=== PATIENT | male | born 1990 | race Caucasian/White ===

== ENCOUNTER 2017-05-27 04:54 | Emergency (ER) | payer OTHER ==
[2017-05-27] MEDS ORDERED: HYDROmorphone HCL 1 MG/ML DISP.SYRIN IV ONE (05:11)
[2017-05-27] MEDS ORDERED: ONDANSETRON HCL/PF 2 MG/ML VIAL IV ONE (05:11)
--- NOTE | 2017-05-27 05:18 | ERNOTE ---
<Muna Garcia - Last Filed: 05/27/17 07:41> Medical Problem HPI - Narrative Date of Service: 05/27/17 - General Time Seen by Provider: 05/27/17 05:06 Source: patient Exam Limitations: no limitations - Immun/Allergies/Home Medications Allergies/Adverse Reactions: Allergies No Known Drug Allergies Allergy (Verified 05/27/17 05:34) Home Medications: HOME MEDICATIONS NK [No Home Medication] 05/27/17 [Last Taken Unknown] - History of Present History Narrative: Recent was awakened from a deep sleep at 0 400 with severe belly pains. He denies any trauma, he states he has had pain like this before however it spontaneously resolved, his pain is severe and he asks for pain medication. He denies any nausea or vomiting he states he has regular bowel movements. Review of Systems - Review of Systems Constitutional: Present: no symptoms reported EYE: Present: no symptoms reported ENT: Present: no symptoms reported Respiratory: Present: no symptoms reported Cardiology: Present: no symptoms reported Gastrointestinal/Abdominal: Present: See HPI Genitourinary: Present: See HPI Musculoskeletal: Present: no symptoms reported Skin: Present: no symptoms reported - Family History Mother Family History - Medical: No pertinent hx Father Family History - Cancer: Melanoma Physical Exam - Physical Exam General Appearance: Present: wd/wn, alert, mild distress - secondary to pain Head Exam: Present: normal inspection, no evidence of injury Eye Exam: Normal inspection: bilateral, PERRL: bilateral, EOMI: bilateral Ears, Nose, Throat: Present: normal ENT inspection Neck: Present: normal inspection, nontender, supple Respiratory: Present: no respiratory distress, normal breath sounds, no accessory muscle use, chest nontender, lungs clear Cardiovascular/Chest: Present: regular rate, rhythm, no murmur, normal peripheral pulses Gastrointestinal/Abdominal: Present: normal bowel sounds, other - pt is tender in the left flank region Back Exam: Present: CVA tenderness (L) Extremity Exam: Present: normal inspection, normal range of motion Neurological Exam: Present: alert, oriented, normal mood/affect, no motor/ sensory deficits Skin Exam: Present: normal color, warm/dry ED Progress - Results and Orders Patient's Lab Results:: I have reviewed the patient's lab results. - Vital Signs Patient's Vital Signs:: I have reviewed the patient's vital signs. - CT/Ultrasound CT/Ultrasound Narrative: CT of abd for stone protocol was read by radiologist as - Transfer of Care Physician Sign Out: Muna Garcia Receiving Physician: Juliana Alexander Pending Results: CT/MRI results Expected Disposition: Discharge Departure Clinical Impression: Cholelithiasis Qualifiers: Cholelithiasis location: gallbladder Cholecystitis presence: without cholecystitis Biliary obstruction: without biliary obstruction Qualified Code(s) : K80.20 - Calculus of gallbladder without cholecystitis without obstruction - Departure Disposition: Home self-care Condition: Stable Instructions: Cholelithiasis, [id number], Form - Excuse from Work, School, or Physical Activity Additional Instructions: if your symptoms persist call the surgical office for follow up Referrals: Neha Parry MD [Staff Physician] - <Juliana Alexander - Last Filed: 05/27/17 12:07> Medical Problem HPI - General Source: patient, old records - Immun/Allergies/Home Medications Immunizations: IMMUNIZATION HX Immunizations Up to Date Yes - History of Present History Narrative: patient states that he has had intermittent abdominal pain for a while usually epigastric,mainly at night an usually resolved with eating. He woke up early this morning with severe upper abdominal pain all the way across. - Patient's Past Medical History Patient History - Medical: Depression, GERD, Kidney stone Patient History - Cardiac/Respiratory: No pertinent hx Patient History - Cancer: No Hx of Cancer Patient History - Surgical Procedures: No surgical history - Social History Abuse History: Hx of Substance Use - precription drugs Psych History: Hx of Depression Drug Use: none Physical Exam - Physical Exam General Appearance: Present: wd/wn, sleeping/easy to arouse Respiratory: Present: no respiratory distress, normal breath sounds, no accessory muscle use, lungs clear Cardiovascular/Chest: Present: regular rate, rhythm, no murmur Gastrointestinal/Abdominal: Present: normal bowel sounds, nondistended, soft, tenderness - across upper abdomen, more left than right. Absent: guarding Back Exam: Present: no CVA tenderness Extremity Exam: Present: no edema Neurological Exam: Present: alert, oriented, normal mood/affect Skin Exam: Present: normal color, warm/dry ED Progress - Results and Orders Patient's Lab Results:: I have reviewed the patient's lab results. - Vital Signs Patient's Vital Signs:: I have reviewed the patient's vital signs. Vital Signs: Vital Signs 05/27/17 05/27/17 05/27/17 05:04 07:41 08:08 Temperature 36.5 C Pulse Rate 80 84 96 Respiratory 40 H 15 12 Rate Blood Pressure 133/79 126/76 111/54 O2 Sat by Pulse 100 98 96 Oximetry - CT/Ultrasound CT/Ultrasound Narrative: CT concerning for cholecystitis gallbladder U/S consistent with acute cholecystitis - Progress/Reassessment Progress Note-Subjective: 05/27/17 08:10 patient sleeping after dilaudid, 05/27/17 08:[address] Parry in the OR 05/27/17 08:45 patient was seen by Dr Parry, diagnosis of cholecystitis questionable, get HIDA scan, 05/27/17 09:11 explained plan to patient, pain resolved, awaiting HIDA scan 05/27/17 11:[address] Parry, gallbladder filling, patient doesn't have cholecystitis , can be discharged radiology report shows gallbladder filling after morphine injection (see report) 05/27/17 11:30 discussed plan with patient, currently no pain
[2017-05-27] MEDS ORDERED: NORMAL SALINE 1,000 ML IV ONE (05:22)
[2017-05-27 05:25] LABS: Hematocrit 44.7 % (42.0-52.0); Hemoglobin 15.3 gm/dL (13.5-18.0); Mean Cell Volume 87.8 fl (78-100); Mean Corpuscular Hemoglobin 30.1 pg (27-31); Mean Corpuscular Hgb Conc 34.2 g/dl (32-36); Mean Platelet Volume 10.5 fl (6.0-9.5); Neutrophil # 3.1 K/mm3 (1.3-6.0); Neutrophil % 45.9 % (42-75.0); Platelet Count 226 K/mm3 (150-450); Red Blood Count 5.09 M/mm3 (4.7-6.0); Red Cell Distribution Width 11.9 % (11.5-14.0); White Blood Count 6.7 K/mm3 (4.0-10.5)
[2017-05-27] MEDS ORDERED: ONDANSETRON HCL/PF 2 MG/ML VIAL ONE (05:28)
[2017-05-27] MEDS ORDERED: HYDROmorphone HCL 1 MG/ML DISP.SYRIN ONE (05:28)
[2017-05-27] MEDS ORDERED: KETOROLAC TROMETHAMINE 30 MG/ML VIAL IV ONE (05:29)
[2017-05-27] MEDS ORDERED: KETOROLAC TROMETHAMINE 30 MG/ML VIAL ONE (05:30)
[2017-05-27 05:40] LABS: Albumin * 3.7 gm/dl (3.4-5.0); Anion Gap 12.4 mmol/L (6.8-13.8); BUN/Creatinine Ratio 10.1 (9.0-21.6); Bilirubin, Total 1.1 mg/dL (0.0-1.1); Ca. Corrected For Albumin 8.7 mg/dL (8.4-10.2); Calcium * 8.8 mg/dL (7.9-10.9); Carbon Dioxide 26.3 mmol/L (24-32.6); Potassium 3.7 mmol/L (3.4-4.6); Total Protein 7.6 gm/dL (6.2-8.2)
[2017-05-27] MEDS ORDERED: MORPHINE SULFATE 4 MG/ML SYRG IV ONE (10:23)
[2017-05-27] MEDS ORDERED: MORPHINE SULFATE 10 MG/ML SYRG ONE (10:33)
[2017-05-27 11:25] VITALS: BP 139/78
[2017-05-27 11:33] LABS: Urine Bilirubin Negative (NEGATIVE); Urine Ketone Negative (NEGATIVE); Urine Nitrite Negative (NEGATIVE); Urine Protein Negative (NEGATIVE); Urine Specific Gravity 1.015 SP.GR. (1.005-1.030); Urine Urobilinogen Normal (NORMAL)
[2017-05-27 11:44] LABS: Urine Appearance Clear; Urine Bacteria None Seen; Urine Blood 5 /ul (NEGATIVE); Urine Color Yellow; Urine RBC None Seen /hpf (0-5); Urine WBC None Seen /hpf (0-5)
== END 2017-05-27 11:41 | disposition home or self-care (01) ==
LOC: ER 04:54
DX: K80.20 Calculus of gallbladder without cholecystitis without obstruction (principal); Z87.442 Personal history of urinary calculi
CPT/HCPCS: 36415; 74176; 76705; 78226; 80053; 81001; 85025; 87086; 96374; 96375; 99284; A9537; J2405

== ENCOUNTER 2017-05-28 09:24 | Emergency (ER) | payer OTHER ==
[2017-05-28 09:30] VITALS: BP 129/82
[2017-05-28] MEDS ORDERED: ONDANSETRON 4 MG TAB.RAPDIS PO ONE (09:45)
--- NOTE | 2017-05-28 09:45 | ERNOTE ---
Abdominal HPI - General Chief Complaint: Abdominal Pain Time Seen by Provider: 05/28/17 09:39 Source: patient Exam Limitations: no limitations - Immun/Allergies/Home Medications Immunizatons: IMMUNIZATION HX Immunizations Up to Date Yes History of Influenza Vaccine No Hx Pneumococcal Vaccination No Allergies/Adverse Reactions: Allergies No Known Drug Allergies Allergy (Verified 05/28/17 09:30) Home Medications: HOME MEDICATIONS Dicyclomine HCl [Bentyl] 10 mg PO TID 14 Days #60 capsule 05/28/17 [Last Taken Unknown] Omeprazole [Prilosec] 20 mg PO DAILY #30 cap 05/28/17 [Last Taken Unknown] Ondansetron [Zofran Odt] 4 mg PO Q6H PRN #20 tab 05/28/17 [Last Taken Unknown] - History of Present Illness Narrative: Patient presents with continuing abdominal pain. He was seen here yesterday for what is presumed to be possible cholecystitis, however he had both a gallbladder ultrasound and a HIDA scan and while there were indeed gallstones the pain did not localize in the right upper quadrant is to be indicated if the pain was exclusively from the gallbladder. He also had a CAT scan of the abdomen and pelvis and no acute abnormalities were found at that time. He was examined here in the emergency department by the on-call surgeon who did not feel that this is a surgical abdomen. He states that while the pain is improved he still having some nausea. Timing: intermittent Quality: moderate Activities at Onset: none Associated Symptoms: Present: nausea, vomiting Prior Abdominal Problems: Present: none Prior Treatment: Present: recently seen, treated by physician Review of Systems - Review of Systems Constitutional: Present: See HPI EYE: Present: no symptoms reported ENT: Present: no symptoms reported Respiratory: Present: no symptoms reported Cardiology: Present: no symptoms reported Gastrointestinal/Abdominal: Present: nausea, vomiting, abdominal pain Genitourinary: Present: no symptoms reported Musculoskeletal: Present: no symptoms reported Skin: Present: no symptoms reported Neurological: Present: no symptoms reported Endocrine: Present: no symptoms reported Hematologic/Lymphatic: Present: no symptoms reported Psych: Present: no symptoms reported - Patient's Past Medical History Patient History - Medical: Depression, GERD, Kidney stone Patient History - Cardiac/Respiratory: No pertinent hx Patient History - Cancer: No Hx of Cancer Patient History - Surgical Procedures: No surgical history Patient History - Other: None - Family History Mother Family History - Medical: No pertinent hx Father Family History - Cancer: Melanoma - Social History Living Situations: home Abuse History: Hx of Substance Use Psych History: Hx of Depression Smoking Status: Never smoker Have you smoked in the past 12 months: No Alcohol Use: rarely Drug Use: marijuana - Immunizations Immunizations Up to Date: Yes Hx Pneumococcal Vaccination: No History of Influenza Vaccine: No Physical Exam - Physical Exam General Appearance: Present: wd/wn, alert, moderate distress Eye Exam: Normal inspection: bilateral, PERRL: bilateral Ears, Nose, Throat: Present: normal ENT inspection, H, normal pharynx Neck: Present: normal inspection, nontender Respiratory: Present: no respiratory distress, normal breath sounds, no accessory muscle use, chest nontender, lungs clear Cardiovascular/Chest: Present: regular rate, rhythm, no murmur, normal peripheral pulses Gastrointestinal/Abdominal: Present: normal bowel sounds, nondistended, soft, no organomegaly, tenderness - tenderness is generalized, no definitive Casey sign Rectal Exam: Present: deferred Back Exam: Present: normal inspection, normal range of motion Extremity Exam: Present: normal inspection, non-tender, no edema, normal range of motion Neurological Exam: Present: alert, oriented, normal mood/affect Skin Exam: Present: normal color, warm/dry Lymphatic Exam: Present: no adenopathy ED Progress - Vital Signs Patient's Vital Signs:: I have reviewed the patient's vital signs. Vital Signs: Vital Signs 05/28/17 09:26 Temperature 36.1 C L Pulse Rate 83 Respiratory 16 Rate Blood Pressure 129/82 O2 Sat by Pulse 98 Oximetry - Progress/Reassessment Chief Complaint: Abdominal Pain Plan - Plan Plan: I discussed Kalpesh's tests that were done yesterday as well as examination with the on-call surgeon at exam him yesterday, and he does not feel this is gallbladder and it is not a surgical abdomen. He suggests that we treat the nausea and vomiting, possible IBS and some treatment for gastritis/ gastroenteritis. He will see Kalpesh at his regularly scheduled appointment. Departure Clinical Impression: Gastroenteritis - Departure Disposition: Home self-care Condition: Good Instructions: Viral Gastroenteritis, Adult, [id number] Prescriptions: Dicyclomine HCl [Bentyl] 10 mg PO TID 14 Days #60 capsule Omeprazole [Prilosec] 20 mg PO DAILY #30 cap Ondansetron [Zofran Odt] 4 mg PO Q6H PRN #20 tab PRN Reason: Nausea And Vomiting
[2017-05-28] MEDS ORDERED: ONDANSETRON 4 MG TAB.RAPDIS ONE (09:55)
== END 2017-05-28 10:07 | disposition home or self-care (01) ==
LOC: ER 09:24
DX: K52.9 Noninfective gastroenteritis and colitis, unspecified (principal)

== ENCOUNTER 2017-06-08 00:01 | Emergency (ER) | payer OTHER ==
--- NOTE | 2017-06-08 00:31 | ERNOTE ---
Abdominal HPI - General Chief Complaint: Abdominal Pain Time Seen by Provider: 06/08/17 00:30 Source: patient, EMR, RN notes reviewed, past records - Immun/Allergies/Home Medications Immunizatons: IMMUNIZATION HX Immunizations Up to Date Yes History of Influenza Vaccine No Hx Pneumococcal Vaccination No Allergies/Adverse Reactions: Allergies No Known Drug Allergies Allergy (Verified 05/28/17 09:30) Home Medications: HOME MEDICATIONS Dicyclomine HCl [Bentyl] 10 mg PO TID 14 Days #60 capsule 05/28/17 [Last Taken Unknown] Omeprazole [Prilosec] 20 mg PO DAILY #30 cap 05/28/17 [Last Taken Unknown] Ondansetron [Zofran Odt] 4 mg PO Q6H PRN #20 tab 05/28/17 [Last Taken Unknown] - History of Present Illness Narrative: Patient has been here twice recently with complaints of abdominal pain. He was worked up for a cholecystitis, including a HIDA scan, which was not conclusive for a cholecystitis. Tonight he ate a [employer] sandwich with english fries. His pain started 4 or so hours after he ate that. He is very anxious, and in quite a bit of pain. He is supposed to do something with someone as follow up, but he is unsure who or why. Date (Duration): 06/07/17 Time (Timing): 23:00 Timing: constant, getting worse Quality: severe Activities at Onset: none Modifying Factors - (Improves): Present: other - nothing Modifying Factors - (Worsens): Present: eating Associated Symptoms: Present: nausea, loss of appetite, shortness of breath Prior Abdominal Problems: Present: similar symptoms Prior Treatment: Present: recently seen, treated by physician - Patient's Past Medical History Patient History - Medical: Depression, GERD, Kidney stone Patient History - Cardiac/Respiratory: No pertinent hx Patient History - Cancer: No Hx of Cancer Patient History - Surgical Procedures: No surgical history Patient History - Other: None - Family History Mother Family History - Medical: No pertinent hx Family History - Cardiac/Respiratory: No pertinent hx Family History - Cancer: No pertinent family hx Father Family History - Medical: No pertinent hx Family History - Cardiac/Respiratory: No pertinent hx Family History - Cancer: Melanoma - Social History Living Situations: significant other Abuse History: Hx of Substance Use Psych History: Hx of Depression Smoking Status: Current every day smoker Have you smoked in the past 12 months: Yes - Vapor cigarettes Do you dip or chew tobacco: No Patient requests Smoking Cessation Consult: No Initiate information on Smoking Cessation: No Alcohol Use: none Drug Use: none - Immunizations Immunizations Up to Date: Yes Hx Pneumococcal Vaccination: No History of Influenza Vaccine: No Physical Exam - Physical Exam General Appearance: Present: severe distress, anxious Head Exam: Present: normal inspection, no evidence of injury Eye Exam: Normal inspection: bilateral, PERRL: bilateral, EOMI: bilateral Ears, Nose, Throat: Present: normal ENT inspection, normal pharynx Neck: Present: normal inspection, nontender Respiratory: Present: no respiratory distress, normal breath sounds, no accessory muscle use, chest nontender, lungs clear Cardiovascular/Chest: Present: regular rate, rhythm, no murmur Gastrointestinal/Abdominal: Present: normal bowel sounds, nondistended, soft, tenderness Back Exam: Present: normal inspection, normal range of motion Extremity Exam: Present: normal inspection, non-tender, normal range of motion, no edema Neurological Exam: Present: alert, oriented, normal mood/affect Skin Exam: Present: normal color, warm/dry ED Progress - Results and Orders Patient's Lab Results:: I have reviewed the patient's lab results. Results and Orders: Laboratory Tests 06/08/17 06/08/17 06/08/17 00:42 00:42 01:18 WBC 8.3 RBC 5.45 Hgb 16.1 Hct 47.4 MCV 87.0 MCH 29.5 MCHC 34.0 RDW 12.1 Plt Count 274 MPV 10.2 H Immature Gran % (Auto) 0.20 Immature Gran # (Auto) 0.02 Neutrophils % 48.5 Lymphocytes % 34.7 Monocytes % 12.1 H Eosinophils % 3.5 H Basophils % 1.0 Nucleated RBC % 0.0 Neutrophils # 4.0 Lymphocytes # 2.9 Monocytes # 1.0 Eosinophils # 0.3 Absolute Basophils 0.1 Sodium 144 H Plasma Sodium 144 H Potassium 3.9 Chloride 105 Carbon Dioxide 27.2 Anion Gap 15.7 H BUN 13 Creatinine 1.23 Est GFR (Non-Af Amer) 74 BUN/Creatinine Ratio 10.6 Random Glucose 103 Calcium 9.2 Calcium Adj for Albumin 8.8 Total Bilirubin 1.9 H AST 24 ALT 44 Alkaline Phosphatase 66 Total Protein 8.2 Albumin 4.1 Amylase Lipase Urine Color Dark yellow Urine Appearance Clear Urine pH 6.0 Ur Specific Jackson >=1.030 Urine Protein Negative Urine Glucose (UA) Negative Urine Ketones Negative Urine Blood 50 H Urine Nitrate Negative Urine Bilirubin Negative Urine Urobilinogen Normal Ur Leukocyte Esterase Negative Urine RBC None seen Urine WBC None seen Ur Epithelial Cells Trace Urine Bacteria None seen Urine Culture Comments No culture indicated Urine Opiates Screen Barbiturate Screen Ur Phencyclidine Scrn Urine Amphetamine U Benzodiazepines Scrn Urine Cocaine Screen Urine Marijuana (THC) 06/08/17 06/08/17 01:18 01:49 WBC RBC Hgb Hct MCV MCH MCHC RDW Plt Count MPV Immature Gran % (Auto) Immature Gran # (Auto) Neutrophils % Lymphocytes % Monocytes % Eosinophils % Basophils % Nucleated RBC % Neutrophils # Lymphocytes # Monocytes # Eosinophils # Absolute Basophils Sodium Plasma Sodium Potassium Chloride Carbon Dioxide Anion Gap BUN Creatinine Est GFR (Non-Af Amer) BUN/Creatinine Ratio Random Glucose Calcium Calcium Adj for Albumin Total Bilirubin AST ALT Alkaline Phosphatase Total Protein Albumin Amylase 31 Lipase 144 Urine Color Urine Appearance Urine pH Ur Specific Jackson Urine Protein Urine Glucose (UA) Urine Ketones Urine Blood Urine Nitrate Urine Bilirubin Urine Urobilinogen Ur Leukocyte Esterase Urine RBC Urine WBC Ur Epithelial Cells Urine Bacteria Urine Culture Comments Urine Opiates Screen Positive H Barbiturate Screen Negative Ur Phencyclidine Scrn Negative Urine Amphetamine Negative U Benzodiazepines Scrn Negative Urine Cocaine Screen Negative Urine Marijuana (THC) Negative - Vital Signs Patient's Vital Signs:: I have reviewed the patient's vital signs. Vital Signs: Vital Signs 06/08/17 00:07 Temperature 36.3 C L Pulse Rate 66 Respiratory 20 Rate Blood Pressure 143/80 O2 Sat by Pulse 99 Oximetry - Progress/Reassessment Chief Complaint: Abdominal Pain Progress:: Improved Progress Note-Subjective: 06/08/17 02:39 Patient is convinced he has pancreatitis, but his amylase and lipase are completely normal. We reviewed his diet, which is more moderate in fat when he eats at home. He has follow up arranged, but is unsure of who it is with. Dr. Parry was consulted when the patient had his HIDA scan. I will give the patient both the number for Dr. Parry and Dr. Dawson so that he will be sure to be able to get follow up. Diet was discussed at length, going over the fat content of the foods he normally eats. Plan - Plan Plan: Sending patient home with a low fat diet, and instructions to get in contact again with the surgeon. Departure Clinical Impression: Recurrent biliary colic - Departure Disposition: Home self-care Condition: Stable Instructions: Biliary Colic, Low-Fat Diet for Pancreatitis or Gallbladder Conditions Additional Instructions: Please follow a low fat diet as much as you can. Referrals: Neha Parry MD [Staff Physician] - (Please call Dr. Parry first, as he appears to be the physician that was consulted and probably the office you spoke with. He is not alarm installation technician this week, but he has already been consulted on you before. If you have to use the surgeon alarm installation technician this week, then please call Dr. Dawson.) Maximiliano Dawson MD [Associate] - (Call this physician if he is who you need to see.)
[2017-06-08] MEDS ORDERED: LORazepam 2 MG/ML DISP.SYRIN IV ONE (00:41)
[2017-06-08] MEDS ORDERED: NORMAL SALINE 1,000 ML IV ONE (00:41)
[2017-06-08] MEDS ORDERED: MORPHINE SULFATE 4 MG/ML SYRG IV ONE (00:41)
[2017-06-08] MEDS ORDERED: ONDANSETRON HCL/PF 2 MG/ML VIAL IV ONE (00:41)
[2017-06-08] MEDS ORDERED: MAG HYDROX/ALUMINUM HYD/SIMETH 30 ML UDC PO ONE (00:43)
[2017-06-08] MEDS ORDERED: LIDOCAINE HCL 20 ML UDC PO ONE (00:43)
[2017-06-08] MEDS ORDERED: SUCRALFATE 1 G/10 ML UDC PO ONE (00:43)
[2017-06-08] MEDS ORDERED: MORPHINE SULFATE 4 MG/ML SYRG ONE (00:45)
[2017-06-08] MEDS ORDERED: ONDANSETRON HCL/PF 2 MG/ML VIAL ONE (00:45)
[2017-06-08 00:58] LABS: Hematocrit 47.4 % (42.0-52.0); Hemoglobin 16.1 gm/dL (13.5-18.0); Mean Corpuscular Hemoglobin 29.5 pg (27-31); Mean Platelet Volume 10.2 fl (6.0-9.5); Neutrophil % 48.5 % (42-75.0); Platelet Count 274 K/mm3 (150-450); Red Blood Count 5.45 M/mm3 (4.7-6.0); Red Cell Distribution Width 12.1 % (11.5-14.0); White Blood Count 8.3 K/mm3 (4.0-10.5)
[2017-06-08] MEDS ORDERED: LORazepam 2 MG/ML DISP.SYRIN ONE (01:06)
[2017-06-08 01:27] LABS: Albumin * 4.1 gm/dl (3.4-5.0); Anion Gap 15.7 mmol/L (6.8-13.8); BUN/Creatinine Ratio 10.6 (9.0-21.6); Bilirubin, Total 1.9 mg/dL (0.0-1.1); Ca. Corrected For Albumin 8.8 mg/dL (8.4-10.2); Calcium * 9.2 mg/dL (7.9-10.9); Carbon Dioxide 27.2 mmol/L (24-32.6); Potassium 3.9 mmol/L (3.4-4.6); Total Protein 8.2 gm/dL (6.2-8.2)
[2017-06-08 01:32] LABS: Urine Bilirubin Negative (NEGATIVE); Urine Blood 50 /ul (NEGATIVE); Urine Ketone Negative (NEGATIVE); Urine Nitrite Negative (NEGATIVE); Urine Protein Negative (NEGATIVE); Urine Specific Gravity >=1.030 SP.GR. (1.005-1.030); Urine Urobilinogen Normal (NORMAL)
[2017-06-08 01:47] LABS: Cocaine Ur Negative (NEGATIVE); Urine Barbiturate Negative (NEGATIVE); Urine Benzodiazepines Negative (NEGATIVE); Urine Opiates Positive (NEGATIVE); Urine PCP Negative (NEGATIVE); Urine THC Negative (NEGATIVE)
[2017-06-08 01:48] LABS: Urine Appearance Clear; Urine Bacteria None Seen; Urine Color Dark Yellow; Urine RBC None Seen /hpf (0-5); Urine WBC None Seen /hpf (0-5)
[2017-06-08 02:09] LABS: Amylase * 31 U/L (25-115); Lipase 144 U/L (73-393)
[2017-06-08 03:20] VITALS: BP 138/68
== END 2017-06-08 03:05 | disposition home or self-care (01) ==
LOC: ER 00:01
DX: K80.50 Calculus of bile duct without cholangitis or cholecystitis without obstruction (principal); K21.9 Gastro-esophageal reflux disease without esophagitis; Z87.442 Personal history of urinary calculi; F41.9 Anxiety disorder, unspecified; F17.200 Nicotine dependence, unspecified, uncomplicated
CPT/HCPCS: 36415; 80053; 80307; 81001; 82150; 83690; 85025; 96374; 96375; 99284; J2405